=== PATIENT | male | born 1985 | race Caucasian/White ===

== ENCOUNTER 2021-03-07 14:51 | Emergency (ER) | payer OTHER, SELFPAY ==
[2021-03-07 15:02] VITALS: BP 133/112; PULSE 103; PULSE 104; RESP 18; TEMP 36.1; O2SAT 97; O2SAT 99; BMI 25.7
--- NOTE | 2021-03-07 15:37 | ED_ITS ---
HPI - Overdose General Chief Complaint: Overdose Stated Complaint: FOUND UNRESP,4MG NARCAN GIVEN W/GOOD RESULT Time Seen by Provider: 03/07/21 15:23 Source: patient and EMS Mode of arrival: EMS Limitations: no limitations History of Present Illness HPI Narrative: 36-year-old male came in for evaluation of accidental overdose. 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 No SI/HI / hallucination. Related Data Allergies Allergy/AdvReac Type Severity Reaction Status Date / Time No Known Allergies Allergy Verified 03/07/21 15:36 Review of Systems Review of Systems: All other systems are reviewed and are negative Constitutional: Reports as per HPI and Reports no additional constitutional complaints Eyes: Reports as per HPI and Reports no additional eye complaints Reports system reviewed and no additional complaints, except as documented Cardiovascular: Reports as per HPI and Reports no additional cardiovascular complaints Respiratory: Reports as per HPI and Reports no additional respiratory complaints Gastrointestinal: Reports as per HPI and Reports no additional gastrointestinal complaints Genitourinary: Reports no additional female genitourinary complaints Musculoskeletal: Reports no additional musculoskeletal complaints Skin/Breast: Reports system reviewed and no additional complaints, except as docu Psychiatric: Reports no additional psychiatric complaints Endocrine: Reports no additional endocrine complaints Hematologic/Lymphatic: Reports no additional hematologic/lymphatic complaints Allergic/Immunologic: Reports no additional allergic/immunologic complaints Reports system reviewed and no additional complaints, except as documented and Reports Abnormal speech present [facility] Social History Social History Advance Directives: No Advance Directives Information Provided: Yes Physical Exam Vital Signs: Vital Signs: Last Vital Signs Temp 97 F 03/07/21 15:02 Pulse 103 H 03/07/21 15:02 Resp 18 03/07/21 15:02 BP 133/112 H 03/07/21 15:02 Pulse Ox 97 03/07/21 15:02 BMI result Body Mass Index 25.7 vital signs have been reviewed as appeared to be correct. Blood pressure Hypertensionl. Heart rate elevated. Respiration rate normal. Temperature normal. Oxygen saturation normal. Appearance: Alert. Oriented X3. No acute distress. Head: Normal external exam. Normocephalic. Atraumatic. No [place] signs noted. No raccoon eyes noted Eyes: PERRLA. EOMI. Conjunctiva and sclera normal. Eyelids normal. ENT: TM's Normal. Pharynx normal. Uvula midline. Moist mucous membranes. No trismus noted. No drooling noted. No muffled voice noted. Neck: Normal inspection. Neck supple. FROM. No adenopathy. Thyroid Normal. No meningeal signs. No neck mass noted. CVS: Normal heart rate and rhythm. Heart sound normal. No murmurs noted. Pulses normal throughout. Respiratory: No respiratory distress. Painless inspiration. Breath sounds normal. No wheezes/rales/rhonchi noted. Chest nontender. No accessory muscle usage noted or decreased air movement noted. Abdomen: Soft and nontender. Bowel sounds normal in all 4 quadrants. No distention noted. No organomegaly noted. No visible injury noted. Back: No CVA tenderness. Full range of motion noted. Skin: Skin warm and dry. Normal skin color. Normal skin turgor. No rashes/lesions/lacerations noted. Extremities: No lower extremity edema. Extremities exhibit normal range of motion. Extremities nontender. Neuro: Oriented X 3. Cranial nerve exam: II-XII are grossly intact No motor deficit. No sensory deficit. Reflexes normal. Course Course Course Narrative: assessment and plan. 36-year-old with questionable accidental overdoses, patient responded to Narcan, patient was observed in the emergency department patient remained awake sober with normal vital signs. Patient discussed with our care team, input is appreciated. MDM - Overdose Lab Data Attestation: I reviewed the patient's lab results. Labs: Lab Results 03/07/21 03/07/21 Range/Units 16:59 16:59 Urine Color STRAW Urine Appearance CLEAR Urine pH 6.0 (5.0-8.0) Ur Specific [place] <= 1.005 (1.005-1.025) Urine Protein NEG (NEG-TRACE) MG/DL Urine Glucose (UA) NEG (NEG) MG/DL Urine Ketones NEG (NEG) MG/DL Urine Blood NEG (NEG) Urine Nitrite NEG (NEG) Ur Leukocyte Esterase NEG (NEG) Urine Opiates Screen Not Detected (Not Detect) Urine Fentanyl Screen POSITIVE H (Not Detect) Ur Barbiturates Screen Not Detected (Not Detect) Ur Phencyclidine Scrn Not Detected (Not Detect) Ur Amphetamines Screen Not Detected (Not Detect) U Benzodiazepines Scrn Not Detected (Not Detect) Urine Cocaine Screen Not Detected (Not Detect) U Marijuana (THC) Screen POSITIVE H (Not Detect) Discharge Plan Discharge Clinical Impression: Drug overdose Qualifiers: Encounter type: initial encounter Injury intent: accidental or unintentional Qualified Code(s): T50.901A - Poisoning by unspecified drugs, medicaments and biological substances, accidental (unintentional), initial encounter Patient Disposition: Home, Self-Care Instructions: Adult Overdose (ED) Referrals: Sofiya Billingsley MD [Primary Care Provider] - 2 days
--- NOTE | 2021-03-07 15:57 | HO.SUDE ---
36 year old male presented to [facility] ED after accidental overdose requiring Narcan. Pt denies hx of overdoses. Pt reports being in recovery since 02/26/20, utilizing Suboxone, AA, and therapy. Pt recently returned to [place] (January) after living in a sober house in [place], [place]. Pt has many community supports through the [facility] and is in the process of connecting to local providers. Pt has supportive girlfriend, whom he lives with, who is also in recovery. Pt also identifies parents as supports. Pt is currently enrolled in classes at [employer] to obtain degree in social work. Pt reports opiate use began in his 20s, heroin use began age 33. Since then, pt has had many times in recovery including 14 months at one time and 6 months here and there. Pt has utilized Vivitrol in the past, prefers Suboxone. Pt had been taking 16 mg Suboxone and has tapered to 2/0.5 mg. Pt reports using Suboxone on an as needed basis at this time. Pt reports prior to today, last 2/0.5 mg was on Friday. Pt reports smoking marijuana and eating edibles, denies other substances including alcohol. Pt attributes overdose today to not eating for the past couple days and taking 3 mg Suboxone. Pt had Narcan at home which his girlfriend administered. Pt provided with community resources and supports, declines referrals at this time due [facility]. Pt plans to speak with provider regarding titrating Suboxone to assist with cravings and to avoid future overdoses. Declines other questions or concerns. Pt provided with t/w contact information if needed. Discussed with ED provider as well as Brea Hernandez APRN.
[2021-03-07 17:13] LABS: Appearance Urine CLEAR; Color Urine STRAW; Glucose Urine UA NEG (NEG); Leukocyte Esterase Urine NEG (NEG); Nitrite Urine NEG (NEG); Specific Gravity - Urine <= 1.005 (1.005-1.025); Urine Blood NEG (NEG); Urine Ketones NEG (NEG); Urine Protein NEG (NEG-TRACE)
[2021-03-07 17:28] LABS: Amphetamine Screen Urine Not Detected (Not Detect); Barbiturates, Urine Not Detected (Not Detect); Benzodiazepines Screen Urine Not Detected (Not Detect); Cannabinoid Screen Urine POSITIVE (Not Detect); Cocaine Screen Urine Not Detected (Not Detect); Fentanyl, urine POSITIVE (Not Detect); Opiate Screen Urine Not Detected (Not Detect); Phencyclidine Screen Urine Not Detected (Not Detect)
== END 2021-03-07 17:52 | disposition home or self-care (01) ==
PROVIDERS: Emergency Provider Emergency Medicine; PCP Family Medicine
DX: T40.1X1A Poisoning by heroin, accidental (unintentional), initial encounter (principal); Y92.9 Unspecified place or not applicable; F11.10 Opioid abuse, uncomplicated; Z71.51 Drug abuse counseling and surveillance of drug abuser; Z79.899 Other long term (current) drug therapy
CPT/HCPCS: 80307; 81003; 99283